=== PATIENT | female | born 1945 | race Caucasian/White ===

== ENCOUNTER 2016-10-03 14:40 | Emergency (ER) | payer MEDICARE, OTHER ==
[2016-10-03 14:49] VITALS: BP 123/66
--- NOTE | 2016-10-03 15:14 | RAD ---
HISTORY: Left foot and ankle trauma COMPARISONS: None VIEWS: 6, Frontal, lateral, and oblique views of the left foot and of the left ankle FINDINGS: BONE DENSITY: Normal. BONES: There is no displaced fracture. JOINTS: There is no arthropathy. ALIGNMENT: There is no dislocation. SOFT TISSUES: Unremarkable. OTHER FINDINGS: None. IMPRESSION: NO ACUTE OSSEOUS INJURY TO THE LEFT FOOT OR LEFT ANKLE. IF SYMPTOMS PERSIST, RECOMMEND REPEAT IMAGING.
--- NOTE | 2016-10-03 15:52 | UC ---
Lower Extremity/Ankle HPI - HPI Summary HPI Summary: FALL DOWN STAIRS LAST NIGHT SLIPPED ON LONG PAJAMA BOTTOMS, TWISTED LEFT ANKLE AND FOOT. SWELLING IN FOOT AND ANKLE TODAY. PAIN WITH WEIGHT BEARING - History of Current Complaint Hx Obtained From: Patient Onset/Duration: Sudden Onset, Lasting Days, Still Present Severity Initially: Moderate Severity Currently: Moderate Aggravating Factor(s): Standing, Ambulation Alleviating Factor(s): Rest, Elevation, Ice - Risk Factors Gout Risk Factors: Negative DVT Risk Factors: Negative Septic Arthritis Risk Factor: Negative <Ruperto Taylor - Last Filed: 10/03/16 15:47> <Kaylah Castanon - Last Filed: 10/03/16 17:47> - History of Current Complaint Chief Complaint: UCLowerExtremity Stated Complaint: FOOT INJURY Time Seen by Provider: 10/03/16 15:14 - Allergies/Home Medications Allergies/Adverse Reactions: Allergies Allergy/AdvReac Type Severity Reaction Status Date / Time Azithromycin [From Zithromax] Allergy Dizziness Verified 03/19/14 15:19 Home Medications: Home Medications Ibuprofen [Advil] 400 mg PO 10/03/16 [History] Meloxicam [Vivlodex] 10 mg PO 10/03/16 [History] PMH/Surg Hx/FS Hx/Imm Hx Previously Healthy: Yes - Surgical History Surgical History: Yes Surgery Procedure, Year, and Place: LAPROSCOPIC SURGERY 24 YEARS AGO. TUBAL LIGATION - Family History Known Family History: Negative: Other - NO JOINT LAXITY - Social History Occupation: Retired Lives: With Family Alcohol Use: Weekly Substance Use Type: None Smoking Status (MU): Never Smoked Tobacco <Ruperto Taylor - Last Filed: 10/03/16 15:47> Review of Systems Constitutional: Negative Skin: Bruising - LEFT ANKLE Eyes: Negative ENT: Negative Respiratory: Negative Cardiovascular: Negative Gastrointestinal: Negative Genitourinary: Negative Motor: Negative Neurovascular: Negative Musculoskeletal: Arthralgia, Edema, Myalgia Neurological: Negative Psychological: Negative All Other Systems Reviewed And Are Negative: Yes <Ruperto Taylor - Last Filed: 10/03/16 15:47> Physical Exam Triage Information Reviewed: Yes Appearance: Well-Appearing, Well-Nourished, Pain Distress Vital Signs: Initial Vital Signs Temp 98.1 F 10/03/16 14:45 Pulse 69 10/03/16 14:45 Resp 18 10/03/16 14:45 BP 123/66 10/03/16 14:45 Pulse Ox 97 10/03/16 14:45 Vital Signs Reviewed: Yes Eye Exam: Normal ENT Exam: Normal ENT: Positive: Normal ENT inspection Dental Exam: Normal Neck exam: Normal Neck: Positive: Supple, Nontender, No Lymphadenopathy Respiratory Exam: Normal Respiratory: Positive: Chest non-tender, Lungs clear, Normal breath sounds, No respiratory distress Cardiovascular Exam: Normal Cardiovascular: Positive: RRR, No Murmur, Pulses Normal Abdominal Exam: Normal Musculoskeletal: Positive: Strength Limited @ - LEFT ANKLE/FOOT, ROM Limited @ - LEFT ANKLE FOOT, Edema @ - LEFT ANKLE/FOOT Neurological Exam: Normal Psychological Exam: Normal Skin Exam: Normal <Ruperto Taylor - Last Filed: 10/03/16 15:47> Vital Signs: Initial Vital Signs Temp 98.1 F 10/03/16 14:45 Pulse 69 10/03/16 14:45 Resp 18 10/03/16 14:45 BP 123/66 10/03/16 14:45 Pulse Ox 97 10/03/16 14:45 <Kaylah Castanon - Last Filed: 10/03/16 17:47> Lower Extremity Course/Dx - Differential Dx/Diagnosis Differential Diagnosis/HQI/PQRI: Fracture (Closed), Sprain, Strain Provider Diagnoses: LEFT ANKLE AND FOOT SPRAIN <Ruperto Taylor - Last Filed: 10/03/16 15:47> Discharge <Ruperto Taylor - Last Filed: 10/03/16 15:47> <Kaylah Castanon - Last Filed: 10/03/16 17:47> - Discharge Plan Condition: Stable Disposition: HOME Patient Education Materials: Ankle Sprain (ED), Foot Sprain (ED) Referrals: [facility] [Outside] Peña Chavez MD [Medical Doctor] - If Needed Peña Martinez MD [Medical Doctor] - Attestation Statement User Type: Provider - I was available for consult. This patient was seen by the GWENDOLYN. The patient was not presented to, seen by, or examined by me. -Reji <Kaylah Castanon - Last Filed: 10/03/16 17:47>
== END 2016-10-03 15:55 | disposition home or self-care (01) ==
LOC: UCEAST 14:40
DX: S93.402A Sprain of unspecified ligament of left ankle, initial encounter (principal); W10.9XXA Fall (on) (from) unspecified stairs and steps, initial encounter; Y93.9 Activity, unspecified; Y92.9 Unspecified place or not applicable; Z88.1 Allergy status to other antibiotic agents
CPT/HCPCS: 99214; G0463